=== PATIENT | male | born 1940 | race Caucasian/White ===

== ENCOUNTER 2018-12-07 18:18 | Emergency (ER) | payer MEDICARE, SELFPAY ==
--- NOTE | 2018-12-07 18:27 | ED_ITS ---
HPI - General Adult General Chief complaint: Nausea/Vomiting/Diarrhea Stated complaint: UNABLE TO KEEP ANYTHING DOWN WEAKNESS Time Seen by Provider: 12/07/18 18:27 Source: patient Mode of arrival: ambulatory Limitations: no limitations History of Present Illness HPI narrative: Patient is a 77-year-old male here for evaluation of several days of nausea and vomiting and occasional diarrhea. He states that most of his symptoms have been occurring at night however he has vomited during the day. He also describes occasional left-sided abdominal pain. He states that the abdominal pain seems to be independent of his other symptoms. No trauma. No rashes. States that he feels very weak. Related Data Previous Rx's Medication Instructions Recorded ondansetron 4 mg PO Q8H PRN #14 tab 12/07/18 Allergies Allergy/AdvReac Type Severity Reaction Status Date / Time No Known Drug Allergies Allergy Verified 12/07/18 20:14 Review of Systems Constitutional Denies fever(s), Reports lethargy and Reports malaise Cardiovascular Denies chest pain and Denies dyspnea Respiratory Denies dyspnea Gastrointestinal Gastrointestinal: Reports abdominal pain, Reports diarrhea, Reports nausea and Reports vomiting Genitourinary Denies dysuria Musculoskeletal Denies myalgias and Denies arthralgias Integumentary/Breasts Denies rash Neurologic Denies behavioral changes Psychiatric Denies behavioral changes Hematologic/Lymphatic Denies easy bleeding and Denies easy bruising Allergic/Immunologic Denies urticaria [facility] Surgical History No pertinent past surgical history (Acute) Social History Smoking Status: Never smoker Social History Smoking Status: Never smoker Exam Initial Vital Signs Initial Vital Signs: Vital Signs Temperature 98.7 F 12/07/18 18:34 Pulse Rate 85 12/07/18 18:34 Respiratory Rate 20 12/07/18 18:34 Blood Pressure 160/64 H 12/07/18 18:34 Pulse Oximetry 96 12/07/18 18:34 Const General: cooperative, well developed, well groomed and No acute distress Orientation: alert, awake and oriented x3 HENMT Head: normal to inspection and normocephalic Resp Effort & Inspection: normal respiratory effort Auscultation: clear to auscultation bilaterally Cardio Rate: regular rate Rhythm: regular rhythm Pulses: radial pulses present GI Inspection: non-distended Palpation: soft, No firm, No guarding and No tender Back/Spine/Pelvis Back: No CVA tenderness Skin Lesions: no lesions Rashes: no rashes Neuro General: alert and awake Cognition: normal cognition Speech: speech normal Motor: muscle tone normal throughout Sensory Exam: no sensory deficits noted Extrem General: normal to inspection and capillary refill normal Psych Appearance: grossly normal and well kempt Scores GCS [place] coma scale eye opening: Spontaneous [place] coma scale verbal response: Orientated [place] coma scale motor response: Obey commands [place] coma scale total score: 15 Course Orders Ordered: ED Orders 12/07/18 18:35 Complete Blood Count AUTO DIFF Stat Comprehensive Metabolic Panel Stat Lipase Stat 12/07/18 18:44 CT abdomen pelvis w con Stat Discontinued Medications Sodium Chloride (Normal Saline 0.9%) 1,000 mls @ 1,000 mls/hr IV BOLUS ONE Stop: 12/07/18 19:43 Last Infusion: 12/07/18 20:13 Dose: 0 mls/hr Admin: 12/07/18 18:58 Dose: 1,000 mls/hr Ondansetron HCl (Zofran Odt Prepack) 1 bottle MISC SEEINSTR ONE Stop: 12/07/18 21:07 Last Admin: 12/07/18 21:24 Dose: 1 bottle Vital Signs - 8 hr 12/07/18 18:34 12/07/18 18:37 12/07/18 19:53 Temperature 98.7 F 98.7 F Pulse Rate 85 85 94 H Respiratory Rate 20 20 22 Blood Pressure 160/64 H 160/64 H Blood Pressure [Right Arm] 151/65 H Pulse Oximetry 96 96 100 12/07/18 21:00 Temperature Pulse Rate 92 H Respiratory Rate Blood Pressure Blood Pressure [Right Arm] 130/74 Pulse Oximetry 97 Medical Decision Making Lab Data Lab results reviewed: Yes I reviewed the patient's lab results. Result diagrams: 12/07/18 18:35 12/07/18 18:35 Lab Results 12/07/18 12/07/18 Range/Units 18:35 18:35 WBC 2.7 L (4.5-11.0) X10^3/uL RBC 3.98 L (4.5-5.9) X10^6/uL Hgb 11.4 L (13.5-17.5) g/dL Hct 33.9 L (41-53) % MCV 85.3 (80-100) fL MCH 28.8 (26-34) PG MCHC 33.7 (30-36) % RDW 13.6 (11.6-14.8) % Plt Count 171 (150-400) X10^3/uL Neut % (Auto) 29.7 L (50-75) % Lymph % (Auto) 37.8 (25-40) % [place] % (Auto) 31.6 H (3-14) % Eos % (Auto) 0.2 L (2-4) % Baso % (Auto) 0.7 (0-2) % Neut # (Auto) 800 L (0587-9865) /uL Lymph # (Auto) 1000 L (8056-4953) /uL [place] # (Auto) 800 (0-900) /uL Eos # (Auto) 0 (0-450) /uL Baso # (Auto) 0 (0-100) /uL Sodium 137 (137-145) mmol/L Potassium 4.3 (3.4-5.1) mmol/L Chloride 98 (98-107) mmol/L Carbon Dioxide 27 (22-32) mmol/L BUN 22 H (9-20) mg/dL Creatinine 1.20 (0.66-1.25) mg/dL Estimated GFR 58.6 L (>60) mL/min BUN/Creatinine Ratio 18.3 (6-22) Glucose 112 H (80-110) mg/dL Calcium 9.1 (8.4-10.2) mg/dL Total Bilirubin 1.3 (0.2-1.3) mg/dL AST 20 (17-59) IU/L ALT 18 L (21-72) IU/L Alkaline Phosphatase 86 (38-126) U/L Total Protein 7.5 (6.3-8.2) g/dL Albumin 4.2 (3.5-5.0) g/dL Globulin 3.3 (1.7-4.1) g/dL Albumin/Globulin Ratio 1.3 (1.0-2.8) Lipase 42 (23-300) U/L Imaging Data CT scan - abdomen: Radiologist's impression: [address] [address] [address] Scan Report Signed Patient: Rodrigo Funez WMR#: [id number] : 1940Acct:[id number] Age/Sex: 77 / MDate of Service: 12/07/18 Loc: ED Accession Number: [id number] Procedure: CT abdomen pelvis w con Ordering Provider: Yuri Lu D.O. PROCEDURE: CT ABDOMEN PELVIS W CON INDICATIONS: Left-sided abdominal pain TECHNIQUE: After the administration of intravenous contrast, 5 mm thick sections acquired from the diaphragm to the symphysis. 5 mm coronal and sagittal reformats were acquired. For radiation dose reduction, the following was used: automated exposure control, adjustment of mA and/or kV according to patient size. COMPARISON: None. FINDINGS: Image quality: Excellent. ABDOMEN: Lung bases: There is mild bibasilar atelectasis. There is a small hiatal hernia. Solid organs: Liver is normal in size and enhancement. Gallbladder is unremarkable. Biliary system is non dilated. Pancreas enhances normally. There is diffuse pancreatic atrophy. Spleen is normal in size. There are diffuse punctate splenic calcifications consistent with prior granulomatous disease. There is a 1.7 cm hypoattenuating focus in the mid spleen, likely representing a splenic cyst or hemangioma, less likely the sequela of trauma. There is no perisplenic fluid or edema. No adrenal nodules. Kidneys demonstrate normal size and enhancement, without hydronephrosis. There is mild bilateral perinephric fat stranding. Peritoneum and bowel: Bowel loops demonstrate normal wall thickness and ca liber. No free fluid or air. Normal appendix best seen on axial image 63 of series 6. Nodes and vessels: There is moderate calcified plaque of the abdominal aorta and branch vessels. Miscellaneous: No ventral hernias. PELVIS: Genitourinary: There is mild soft tissue thickening at the left vesicoureteral junction, without obstructing stone or left ureteral dilatation identified. Bladder wall thickness is otherwise normal. Miscellaneous: There is a small fat-containing left indirect inguinal hernia. Bones: Moderate multilevel degenerative changes of the lumbar spine with superior endplate Schmorl's node at L4. IMPRESSION: 1. 1.7 cm hypoattenuating focus in the mid spleen, likely representing a splenic cyst or hemangioma. Splenic infection, infarct, or laceration is thought less likely given morphology and lack of perisplenic fluid or edema. Correlation with history of trauma suggested. 2. Mild soft tissue thickening of the left vesicoureteral junction without left ureteral dilatation or hydronephrosis. This may be a normal finding, but consider correl ation with urinalysis or cystoscopy if there is continued clinical concern. 3. No nephrolithiasis or hydronephrosis. Dictated by: Aime Hong M.D. on 12/07/2018 at 20:20 Approved by: Aime Hong M.D. on 12/07/2018 at 20:34 [facility] Narrative Medical decision making narrative: Patient has a benign abdominal exam. Patient denies any trauma to his left upper quadrant. I do low suspicion for a splenic injury. I did inform him that he needed to talk with his primary doctor regarding this finding on the CT scan. Patient stated that he feels better after the Zofran and the fluids here in the ER. No indication for antibiotics. Hold on further workup for now. Patient given return precautions and follow-up instructions. He expressed understanding and agreement with plan. Discharge Plan Departure Patient Disposition: Home Clinical Impression: Nausea & vomiting Qualifiers: Vomiting type: unspecified Vomiting Intractability: non-intractable Qualified Code(s): R11.2 - Nausea with vomiting, unspecified Abdominal pain Qualifiers: Abdominal location: unspecified location Qualified Code(s): R10.9 - Unspecified abdominal pain Discharge Date/Time: 12/07/18 21:25 Interventions: ED Discharge Assessment Last Done: 12/07/18 21:24 Instructions: Acute Abdominal Pain, Nausea and Vomiting-Adult Activity Restrictions/Additional Instructions: Remember to talk with your primary provider when you return to [place] to discuss the further workup of the cyst in your spleen. Take the nausea medications as needed. Increase your fluid intake. Return to the emergency department for any new or worsening symptoms Prescriptions: New ondansetron 4 mg tablet,disintegrating 4 mg PO Q8H PRN (Reason: nausea and vomiting) Qty: 14 RF: 0
[2018-12-07 18:34] VITALS: BP 160/64; PULSE 85; RESP 20; TEMP 37.1; O2SAT 96
[2018-12-07 18:37] VITALS: BP 160/64; PULSE 85; RESP 20; TEMP 37.1; O2SAT 96; BMI 30.7
--- NOTE | 2018-12-07 18:44 | DI.CT.S_ITS ---
PROCEDURE: CT ABDOMEN PELVIS W CON INDICATIONS: Left-sided abdominal pain TECHNIQUE: After the administration of intravenous contrast, 5 mm thick sections acquired from the diaphragm to the symphysis. 5 mm coronal and sagittal reformats were acquired. For radiation dose reduction, the following was used: automated exposure control, adjustment of mA and/or kV according to patient size. COMPARISON: None. FINDINGS: Image quality: Excellent. ABDOMEN: Lung bases: There is mild bibasilar atelectasis. There is a small hiatal hernia. Solid organs: Liver is normal in size and enhancement. Gallbladder is unremarkable. Biliary system is non dilated. Pancreas enhances normally. There is diffuse pancreatic atrophy. Spleen is normal in size. There are diffuse punctate splenic calcifications consistent with prior granulomatous disease. There is a 1.7 cm hypoattenuating focus in the mid spleen, likely representing a splenic cyst or hemangioma, less likely the sequela of trauma. There is no perisplenic fluid or edema. No adrenal nodules. Kidneys demonstrate normal size and enhancement, without hydronephrosis. There is mild bilateral perinephric fat stranding. Peritoneum and bowel: Bowel loops demonstrate normal wall thickness and caliber. No free fluid or air. Normal appendix best seen on axial image 63 of series 6. Nodes and vessels: There is moderate calcified plaque of the abdominal aorta and branch vessels. Miscellaneous: No ventral hernias. PELVIS: Genitourinary: There is mild soft tissue thickening at the left vesicoureteral junction, without obstructing stone or left ureteral dilatation identified. Bladder wall thickness is otherwise normal. Miscellaneous: There is a small fat-containing left indirect inguinal hernia. Bones: Moderate multilevel degenerative changes of the lumbar spine with superior endplate Schmorl's node at L4. IMPRESSION: 1. 1.7 cm hypoattenuating focus in the mid spleen, likely representing a splenic cyst or hemangioma. Splenic infection, infarct, or laceration is thought less likely given morphology and lack of perisplenic fluid or edema. Correlation with history of trauma suggested. 2. Mild soft tissue thickening of the left vesicoureteral junction without left ureteral dilatation or hydronephrosis. This may be a normal finding, but consider correlation with urinalysis or cystoscopy if there is continued clinical concern. 3. No nephrolithiasis or hydronephrosis. Dictated by: Aime Hong M.D. on 12/07/2018 at 20:20 Approved by: Aime Hong M.D. on 12/07/2018 at 20:34
[2018-12-07] MEDS: SODIUM CHLORIDE 0.9% 1,000 ML 1000 ML IV (18:58)
[2018-12-07 19:17] LABS: Add Manual Diff / Slide Review NO; Basophils Absolute Auto 0 /uL (0-100); Basophils Percent Auto 0.7 % (0-2); Eosinophils Absolute Auto 0 /uL (0-450); Eosinophils Percent Auto 0.2 % (2-4); Hematocrit 33.9 % (41-53); Hemoglobin 11.4 g/dL (13.5-17.5); Lymphocytes Absolute Auto 1000 /uL (1100-4500); Lymphocytes Percent Auto 37.8 % (25-40); Mean Corpuscular HGB Conc 33.7 % (30-36); Mean Corpuscular Hemoglobin 28.8 PG (26-34); Mean Corpuscular Volume 85.3 fL (80-100); Monocytes Absolute Auto 800 /uL (0-900); Monocytes Percent Auto 31.6 % (3-14); Neutrophils Absolute Auto 800 /uL (1500-7000); Neutrophils Percent Auto 29.7 % (50-75); Platelet Count 171 X10^3/uL (150-400); Red Blood Cell Count 3.98 X10^6/uL (4.5-5.9); Red Cell Distribution Width 13.6 % (11.6-14.8); White Blood Cell Count 2.7 X10^3/uL (4.5-11.0)
[2018-12-07 19:22] LABS: Alanine Aminotransferase 18 IU/L (21-72); Albumin 4.2 g/dL (3.5-5.0); Albumin Globulin Ratio 1.3 (1.0-2.8); Alkaline Phosphatase 86 U/L (38-126); Aspartate Aminotransferase 20 IU/L (17-59); BUN Creatinine Ratio 18.3 (6-22); Bilirubin Total 1.3 mg/dL (0.2-1.3); Blood Urea Nitrogen 22 mg/dL (9-20); Calcium 9.1 mg/dL (8.4-10.2); Carbon Dioxide 27 mmol/L (22-32); Chloride 98 mmol/L (98-107); Estimated Glomerular Filt Rate 58.6 mL/min (>60); Globulin 3.3 g/dL (1.7-4.1); Glucose 112 mg/dL (80-110); HEMOLYSIS < 15 (0-50); Lipase 42 U/L (23-300); Potassium 4.3 mmol/L (3.4-5.1); Sodium 137 mmol/L (137-145); Total Protein 7.5 g/dL (6.3-8.2)
[2018-12-07 19:53] VITALS: BP 151/65; PULSE 94; RESP 22; O2SAT 100
[2018-12-07 21:00] VITALS: BP 130/74; PULSE 92; O2SAT 97
[2018-12-07] MEDS: ONDANSETRON 4 MG ODT PREPACK 1 BOTTLE MISC (21:24)
== END 2018-12-07 21:25 | disposition home or self-care (01) ==
PROVIDERS: Emergency Provider Emergency Medicine
DX: R11.2 Nausea with vomiting, unspecified (principal); R10.9 Unspecified abdominal pain
CPT/HCPCS: 36591; 74177; 80053; 83690; 85025; 96360; 99283; 99284; Q9967